=== PATIENT | female | born 1945 | race Caucasian/White ===

== ENCOUNTER → 2022-09-03 | Outpatient (CLI) | payer MEDICARE, OTHER, SELFPAY ==
--- NOTE | 2022-09-03 14:24 | US_ITS ---
STUDY: ULTRASOUND OF THE FEMALE PELVIS - COMPLETE REASON FOR EXAM: Female, 76 years old. Postmenopausal bleeding -- No TV probe LMP: Unknown. TECHNIQUE: Transabdominal TECHNICAL QUALITY: Limited. No transvaginal probe used COMPARISON: None. FINDINGS: The uterus is anteverted and is in a midline position. The uterus measures 7.7 x 5.1 x 3.1 cm. Normal uterine cervix. The endometrium measures 7.1 mm in thickness, and is hyperechoic. There is no demonstrated endometrial mass. There is a 4 cm fibroid. I.U.D. - The patient does not have an I.U.D. The right ovary is visualized. The right ovary measures 2.0 x 1.7 x 1.5 cm. There is no right ovarian cyst or ovarian mass. There is no visualized right adnexal mass or complex lesion. There is normal arterial and normal venous vascularity. The left ovary is not visualized. There is no fluid in the cul-de-sac. The bladder is sonographically normal US/Pelvic (Non ) IMPRESSION: Patient has postmenopausal bleeding and the endometrium is abnormally thickened at 7.1 mm. However, this measurement was performed only with a transabdominal probe and is not as accurate as measured with the transvaginal probe. Nonetheless, because the patient is having postmenopausal bleeding, further evaluation of the endometrium to include biopsy is recommended to exclude endometrial carcinoma. 4 cm uterine fibroid suspected No suspicious adnexal mass or free fluid Electronically Signed: Evaristo Heart MD at 11:24 EDT ,
== END | disposition home or self-care (01) ==
LOC: OPUS 14:23
PROVIDERS: PCP Internal Medicine; Visit Provider Nurse Practitioner Women's Health
DX: N95.0 Postmenopausal bleeding (principal)
CPT/HCPCS: 76856

== ENCOUNTER 2022-10-12 12:09 | Day surgery (SDC) | payer MEDICARE, OTHER, SELFPAY ==
[2022-10-12] VITALS (7 sets, daily range): BP systolic 141–155; BP diastolic 75–84; PULSE 69–77; RESP 16; TEMP 36.2–37.1; O2SAT 91–97; BMI 39.2
--- NOTE | 2022-10-12 | IMM_PTH ---
PATIENT: VANNA PARKER [place] [facility] [id number] AGE/SX: 76/F ROOM: RE10/12/[address]: Dr. Bronwyn Morgan MD : 1945 BED: DIS: 10/12/2022 SPEC #: [id number] RECD: 10/14/22 14:41 STATUS: KATHLEEN REQ #: [id number] SYMONE: 10/12/22 00:[address]: Bronwyn Morgan DEPT: IMMUNOHISTOCHEMISTRY RECD BY: Gaby Carrasco ENTERED: 10/14/22 14:42 SP TYPE: IMMUNO OTHR DR: Dr. Daksha Mchugh MD Tissues: Endometrium, NOS Procedures: MSH2 (add) MLH-1 (add) MSH6 (add) Anti-PMS2 (add) HER2 HUDSON (add) P53 (add) KI-67 (initial) PHYSICIAN & INSTITUTION [place] [id number] SPECIMEN INFORMATION: Tissue Source: Endometrial curettings Clinical Info: Enlarged uterus, postmenopausal bleeding Specimen Number: [id number] CPT code: 78896, 03878 x6 METHODOLOGY: Deparaffinized sections of prefer/formalin-fixed tissue or PAP/DQ stained slides are incubated with monoclonal/polyclonal antibodies/oligonucleotide probes. Localization is made via biotin free immunoperoxidase method. Appropriate controls are performed and reacted as expected. Results on target cell population are indicated in the following table: RESULTS: ANTIBODY / CLONE RESULT Her-2neu (CB11) negative (0) MLH-1 (M1) positive MSH2 (25D12) positive MSH6 (44) positive PMS2 (KXM5364) positive Ki-67 (30-9) positive, moderate to high P53 (DO-7) positive, focal (wild type pattern) These tests were developed and their performance characteristics determined by [facility]. They may not have been cleared or approved by the U.S. Food and Drug Administration. The FDA has determined that such clearance or approval is not necessary. The above immunohistochemical/dualISH markers are ordered and reviewed by the Pathologist. INTERPRETATION: Endometrial curettings: Endometrial adenocarcinoma. Result of Microsatellite Instability Study: Negative (no loss of mismatch protein; no microsatellite instability detected). SJ:edd 10/15/2022
--- NOTE | 2022-10-12 07:14 | PCM.HP.BLA ---
History and Physical MR#: [id number] Acct: [id number] Name: VANNA PARKER Rep #: [id number] : 1945 Provider: Dr. Bronwyn Morgan MD Age/Sex: 76/F [place] [facility] [place] Status: Signed Intake Vital Signs 08/30/2312:04 09/17/2311:47 09/17/2311:47 Height 5 ft 5 ft 5 ft Weight: 206 lb BMI 40.2 BP 139/71 H Intake Visit Reasons: consult for D&C US done 09/03 Log Check Scaler Required: No Is patient in pain?: No Allergies No Known Allergies Allergy (Verified 09/16/22 12:47) Medications Ca 600 mg-D3 20 mcg-mag oxide 50 ky-Ng-kjiivn-manganese-boron tablet (Calcium 600-D3 Plus (mag-zinc)) 1 ea PO DAILY 02/02/13 [History Confirmed 09/16/22] Ocuvite 1 tab PO DAILY 02/02/13 [History Confirmed 09/16/22] aspirin 81 mg chewable tablet 81 mg PO DAILY@0800 02/02/13 [History Confirmed 09/16/22] allopurinol 300 mg tablet 300 mg PO DAILY 08/26/22 [History Confirmed 09/16/22] atorvastatin 40 mg tablet 40 mg PO DAILY 08/26/22 [History Confirmed 09/16/22] cetirizine 10 mg capsule (Zyrtec) 10 mg PO DAILY PRN 08/26/22 [History Confirmed 09/16/22] isosorbide mononitrate 30 mg tablet,extended release 24 hr 30 mg PO DAILY 08/26/22 [History Confirmed 09/16/22] metoprolol succinate 25 mg tablet,extended release 24 hr 25 mg PO DAILY 08/26/22 [History Confirmed 09/16/22] mv-mn-folic 200 mcg-vit K 15 mcg-lutein 5 mg-zeaxanthin 1 mg capsule (PreserVision AREDS 2 Plus Multivit) cap PO 08/26/22 [History Confirmed 09/16/22] nitroglycerin 0.4 mg sublingual tablet (Nitrostat) 0.4 mg sublingual Q5M PRN 08/26/22 [History Confirmed 09/16/22] omeprazole 40 mg capsule,delayed release 40 mg PO DAILY 08/26/22 [History Confirmed 09/16/22] fluticasone propionate 50 mcg/actuation nasal spray,suspension (Flonase Allergy Relief) 1 spray intranasal DAILY 08/30/22 [History Confirmed 09/16/22] misoprostol 200 mcg tablet (Cytotec) 200 mcg PO .COMPLEX #2 tabs 09/16/22 [Rx Confirmed 09/16/22] Is last menstrual period known: No Post menopausal: Yes Patient : No : No PFSH Medical History Atherosclerotic heart disease of [place] coronary artery without angina pectoris Body mass index [BMI] 40.0-44.9, adult Gout, unspecified History of colon cancer HTN (hypertension), benign Hyperlipidemia, unspecified Hypertriglyceridemia Pancreatitis Reactive airway disease Severe obesity Type 2 diabetes mellitus Surgical History H/O partial resection of colon S/P coronary artery stent placement S/P hernia repair Status post open reduction with internal fixation of fracture Family History Mother Myocardial infarctionBrother Cancer Lung cancer Social History number of children: 0 current occupational status: retired Smoking Status: Never smoker alcohol intake: never substance use type: does not use seatbelt use: always do you feel safe at home: Yes additional social history: Single HPI consult for D&C US done 09/03 Details: AVNNA PARKER is a 76 year old who presents for postmenopausal bleeding. she has a 4 c fibroid and a 7 mm lining. she had an episode 2 weeks ago. she denies any clots just had spotting for a few days. she denies any pelvic pain or pressure, no bloating no bowel complaints. she isn't having any chest pain or shortness of breath, she has had bleeding in the past and had a d and c by dr aguilera in the past, previously saw dr francisco. she didn't have anything cancerous. History 0 Elective abortions Hx Para Spontaneous abortions Hx # Term Pregnancies Ectopic pregnancies Hx # Pregnancies Multiple births # of living children ROS Const Constitutional: Denies fatigue, weight gain or weight loss ENT ENT: Reports system reviewed and no additional complaints, except as documented Cardio Card: Denies chest pain Resp Resp: Denies cough or dyspnea GI GI: Reports as per HPI; Denies abdominal pain, constipation, nausea or vomiting : Denies nipple discharge, urinary frequency, urinary incontinence, urinary hesitancy, urinary urgency, vaginal discharge, vaginal dryness, vaginal odor or vaginal pruritus Musc Musc: Denies arthralgias, back pain or muscle weakness Skin Skin/Breast: Denies alopecia, change in hair, dry skin, breast mass, breast pain, breast skin changes or nipple discharge Neuro Neuro: Reports system reviewed and no additional complaints, except as documented Psych Psych: Reports system reviewed and no additional complaints, except as documented Endo Endo: Denies cold intolerance, excessive sweating, heat intolerance or polydipsia Aaron/Lymph Hematologic/Lymphatic: Denies easy bleeding, Denies easy bruising and Denies lymphadenopathy Exam Const General: cooperative, healthy appearing, comfortable and no acute distress Orientation: alert HENMT Head: normal to inspection and normocephalic Ears: hearing grossly normal bilaterally and external ears normal Nose: external nose normal and nares normal Face and sinus: normal facial exam Neck Neck: normal visual inspection and no lymphadenopathy Thyroid: thyroid normal Chest Chest palpation & inspection: normal inspection of the chest Resp Effort & Inspection: normal respiratory effort Auscultation: clear to auscultation bilaterally Cardio Rate: regular rate Rhythm: regular rhythm Heart Sounds: S1 normal and S2 normal GI Inspection: normal to inspection and non-distended Palpation: soft and no hepatosplenomegaly Musc Other: gross motor intact no deficits, full bilateral strength Skin General: no rashes or lesions noted Neuro General: patient alert, patient awake, moves all extremities and no focal motor deficits Motor: muscle tone normal throughout Extrem General: normal to inspection and no pedal edema Psych Appearance: grossly normal Mental Status: mental status grossly normal Affect: normal affect Speech and Movement: speech and movement normal Coding Level of Care Code Off vis,est,level 4 Diagnoses Enlarged uterus N85.2 Postmenopausal bleeding N95.0 Assessment and Plan Assessment and Plan (1) Enlarged uterus: Status: Acute Comment: Hx of fibroids; ROR CCF (2) Postmenopausal bleeding: Status: Acute Comment: 7 m lining 4 cm fibroid. plan d and c hysteroscopy, cytotec prep Medications: New misoprostol (Cytotec) 200 mcg PO the night before and 2 hours prior to the procedure 2 tabs 1RF Plan After discussing the patient's diagnosis and treatment plan options, patient wishes to proceed with surgical management. I have discussed with the patient the risks, benefits, and alternatives of the procedure which include but are not limited to risks of anesthesia, bleeding, infection, possible damage to bowel, bladder, or surrounding vasculature which could lead to additional surgery to evaluate any complications. Patient agrees to procedure and wishes to proceed. ACOG/uptodate references given for additional information regarding procedure.
[2022-10-12] MEDS: Lactated Ringers 1,000 ML 15 ML IV (13:04)
[2022-10-12 13:09] LABS: Hematocrit 42.6 % (37-47); Hemoglobin 13.5 g/dL (12.0-15.0); Mean Corp Hgb Conc 31.7 g/dL (32-36); Mean Corpuscular Hgb 29.7 pg (27.0-32.0); Mean Corpuscular Volume 93.8 fL (81-99); Mean Platelet Vol. 10.3 fl (6.2-12.0); Platelet Count 220 K/mm3 (150-450); RBC Distribution Width CV 14.4 % (11.6-14.6); RBC Distribution Width SD 49.1 fl (35.1-43.9); Red Blood Count 4.54 M/mm3 (4.2-5.4); White Blood Count 6.9 K/mm3 (4.4-11.0)
--- NOTE | 2022-10-12 13:47 | DCINST_ITS ---
Discharge Instructions Diet Discharge Diet: No restrictions Activity Discharge Activity: Return to Normal Activity, May Shower and May Take a Tub Bath (after 1 week) May resume sexual activity in: 1-2 weeks Weight Bearing Status: Weight bearing as tolerated Lifting Restrictions: none Dressing / Incision Call your doctor if you observe: Fever of 101 or Higher, Using more than 1 pad per hour, Shortness of breath and Uncontrolled pain Follow Up Care Please Follow Up With: Bronwyn Morgan MD When: Call [phone] to schedule appointment. Test Results: Test results from this visit will be discussed in further detail at your follow- up appointment, if applicable. Discharge Plan Admission Attending Provider: Bronwyn Morgan Primary Care Provider: Daksha Mchugh Discharge Orders/Prescriptions Prescriptions: No Action Zyrtec 10 mg capsule 10 mg PO DAILY PRN (Reason: allergy symptoms) nitroglycerin [Nitrostat] 0.4 mg tablet, sublingual 0.4 mg sublingual Q5M PRN (Reason: chest pain) Rx Instructions: do not exceed 3 doses per episode PreserVision AREDS 2 Plus MV 200 mcg-15 mcg- 5 mg-1 mg capsule 1 cap PO DAILY atorvastatin 40 mg tablet 40 mg PO DAILY allopurinol 300 mg tablet 300 mg PO DAILY metoprolol succinate 25 mg tablet extended release 24 hr 25 mg PO DAILY omeprazole 40 mg capsule,delayed release(DR/EC) 40 mg PO DAILY isosorbide mononitrate 30 mg tablet extended release 24 hr 30 mg PO DAILY fluticasone propionate [Flonase Allergy Relief] 50 mcg/actuation spray,suspension 1 spray intranasal DAILY Rx Instructions: administer into each nostril misoprostol [Cytotec] 200 mcg tablet 200 mcg PO .COMPLEX Qty: 2 1RF Rx Instructions: 200 mcg PO the night before and 2 hours prior to the procedure aspirin 81 MG tablet,chewable 81 mg PO DAILY@0800 Ca-D3-mag al-itxn-kkq-clemente-bor [Calcium 600-D3 Plus (mag-zinc)] 1 EACH tablet 1 ea PO DAILY Ocuvite 1 tab PO DAILY Referrals / Follow Up: Daksha Mchugh MD [Primary Care Provider] - Disposition Disposition (needs filled in before D/C Order can be placed): Home, Self Care
--- NOTE | 2022-10-12 13:47 | PCM.OPRPT ---
Problems Associated Problem List Diagnoses (1) Postmenopausal bleeding: (2) Enlarged uterus: Report of Operation Date of Procedure: 10/12/22 Pre-Operative Diagnosis: see problem list Post-Operative Diagnosis: same Surgery/Procedure Performed:: D&C hysteroscopy using symphion Surgeon: Bronwyn Morgan airconditioning engineer: None Type of Anesthesia: Local MAC Special Medications: none Specimen's removed: EMC Drains: none Estimated Blood Loss (mL): 50 Fluids Replaced: crystalloid Description of Procedure: Patient was prepped and draped in a normal sterile fashion under MAC anesthesia. A weighted speculum was placed in the vagina and the anterior lip of the cervix was grasped with a single-tooth tenaculum. A paracervical block was placed with 1% lidocaine. Cervix was progressively dilated to allow passage of a 5 mm hysteroscope. The lining was fully visualized and noted to have an irregular shape and boggy filmy appearance, irregular cavity either due to fibroid present or septum . Uterine sounded to 7 cm. Using the symphion device, the lining was progressively removed without complications. Direct visual curettage was performed using the device , and all specimens were sent to pathology. All instruments were removed from the vagina and excellent hemostasis was noted. Patient was awoken and taken to recovery in stable condition. Grafts/Implants Used: none Complications none Admit VTE Documentation VTE Present on Admission: No VTE Mechan Device Prophylaxis: SCD's Multi Select Codes Urinary/Genital Urinary/Genital CPT Codes: 39621 Hysteroscopy,EMC, Polypectomy
[2022-10-12 13:55] LABS: ALB/GLOB Ratio 0.8 RATIO (0.9-2.4); AST(SGOT) 23 U/L (15-37); Alanine Aminotransfer ALT/SGPT 23 U/L (13-56); Albumin, Serum 3.4 g/dL (3.2-5.0); Alkaline Phosphatase 94 U/L (45-117); Anion Gap 3 (5-15); BUN 16 mg/dL (7-18); BUN/Creat Ratio 21.4 RATIO (10-20); Calcium,Total 8.8 mg/dL (8.5-10.1); Chloride 103 mmol/L (98-107); Creatinine, Serum 0.75 mg/dL (0.55-1.02); EST Glomerular Filtration Rate 80 mL/min (>60); Est Glom Filt Rate - Afr Amer 97 mL/min (>60); Estimated Creatinine Clearance 33.84 ml/min; Globulin 4.3 g/dL (2.2-4.2); Glucose 109 mg/dL (74-106); Potassium 3.8 mmol/L (3.5-5.1); Protein, Total 7.7 g/dL (6.4-8.2); Sodium Level 138 mmol/L (136-145)
--- NOTE | 2022-10-12 14:20 | EMB_PTH ---
PATIENT: VANNA PARKER LOC: [facility] – [place] U#:[id number] AGE/SX: 76/F ROOM: RE10/12/[address]: Dr. Bronwyn Morgan MD : 1945 BED: DIS: 10/12/2022 SPEC #: [id number] RECD: 10/12/22 16:31 STATUS: KATHLEEN MORENO #: [id number] SYMONE: 10/12/22 14:[address]: Bronwyn Morgan DEPT: SURGICAL PATHOLOGY RECD BY: Eli Ng ENTERED: 10/13/22 09:40 SP TYPE: ENDOM BX/C OTHR DR: Dr. Daksha Mchugh MD Tissues: Endometrium, NOS Procedures: Surgery Specimen Level IV HEADER OPERATION: Hysteroscopy, D & C Symphion PRE-OP DIAGNOSIS: Enlarged uterus, postmenopausal bleeding TISSUE SUBMITTED: Endometrial curettings MICROSCOPIC DIAGNOSIS Endometrial curettings: Well-differentiated endometrial adenocarcinoma, endometrioid type (FIGO grade I). See comment. KATLIN:edd 10/14/2022 COMMENT Immunohistochemistry ([id number]) for microsatellite instability (mismatch repair of protein) will be performed and the results will be reported separately. Case has been reviewed in consultation with Dr. Mcdonald who concurs with the above diagnosis. IDC:[id number] MICROSCOPIC DESCRIPTION Slides are reviewed. GROSS DESCRIPTION Received in fixative is one container labeled with the patient's name and designated endometrial curettings. The specimen consists of multiple irregular fragments of [place] soft tissue that in aggregate measure 2.5 x 2.0 x 0.2 cm. The specimen is totally submitted in one cassette. / AM:edd 10/13/2022 TC:0 CPT: 47409
[2022-10-12] MEDS: Lidocaine 1% (20 ml mdv) 20 ML Vial (14:44)
== END 2022-10-12 15:56 | disposition home or self-care (01) ==
LOC: SDC 12:13 → AC 12:17
PROVIDERS: PCP Internal Medicine; Referring Provider Obstetrics & Gynecology; Visit Provider Obstetrics & Gynecology
PROC: 0UB98ZZ Excision of Uterus, Via Natural or Artificial Opening Endoscopic (ICD-10-PCS; CPT 58558; principal; 2022-10-12 14:05)
DX: C54.1 Malignant neoplasm of endometrium (principal); Z68.41 Body mass index [BMI] 40.0-44.9, adult; E11.9 Type 2 diabetes mellitus without complications; N95.0 Postmenopausal bleeding; I10 Essential (primary) hypertension; N85.2 Hypertrophy of uterus; I25.10 Atherosclerotic heart disease of native coronary artery without angina pectoris; E78.5 Hyperlipidemia, unspecified; Z79.899 Other long term (current) drug therapy; Z79.82 Long term (current) use of aspirin; E66.9 Obesity, unspecified; M10.9 Gout, unspecified; K21.9 Gastro-esophageal reflux disease without esophagitis
CPT/HCPCS: 58558; 80053; 85027; 86850; 86900; 86901; 88305; 88341; 88342; J7120; J2405